=== PATIENT | male | born 1990 | race African-American/Black ===

== ENCOUNTER 2021-01-22 09:35 | Emergency (ER) | payer OTHER, SELFPAY ==
--- NOTE | ~2021-01-22 | XR_ITS ---
EXAMINATION: XR chest 2V EXAM DATE: 01/22/2021 11:23 INDICATION: Sometimes non prod cough chest painx 10 days non smoker. TECHNIQUE: Frontal and lateral projections of the chest obtained and reviewed. There is no prior sarika dy for comparison. FINDINGS: The lungs are clear. There are no pleural effusions. The cardiomediastinal silhouette is within normal limits. There is no pneumothorax suspected. The bones and soft tissues are unremarkab le. IMPRESSION: No acute cardiopulmonary findings. Reviewed, dictated and finalized at location B.
[2021-01-22 09:55] VITALS: BP 128/88; PULSE 72; RESP 16; TEMP 36.4; O2SAT 99
--- NOTE | 2021-01-22 10:39 | ED.GENADULT ---
HPI - General Adult General Chief complaint: Unspecified Stated complaint: Pressure in chest Time Seen by Provider: 01/22/21 10:15 Source: patient, RN notes reviewed and old records reviewed Mode of arrival: ambulatory Limitations: no limitations History of Present Illness HPI narrative: 30-year-old male who presents to [facility] with complaints of 10 day history of chest pressure and non productive cough. Patient also states that pressure feeling is intermittent and that it is resolved some when he takes a deep breath and burps, Patient denies any shortness of breath, denies any radiation of pain to back, jaw, or to his arms, denies any episodes of nausea or any episodes of diaphoresis. Patient admits to some alcohol use, denies any tobacco use, states does like spicy foods, denies any nausea or vomiting.Patient denies any fevers, chills or sweats, denies any shortness of breath or any body aches, has not had COVID vaccine. Patient states that he does lift frequently at work at most is 50 lb packages, works for [employer]. MD complaint: chest pressure with cough Onset (ago): day(s) (10) Treatments prior to arrival: none Related Data Allergies Allergy/AdvReac Type Severity Reaction Status Date / Time No Known Allergies Allergy Unverified 03/28/16 16:15 Review of Systems Review of Systems: CONSTITUTIONAL: Denies fever, chills, or sweats. EYES: Denies visual changes, redness, or discharge. ENT: Denies rhinorrhea, congestion, sore throat, or otalgia. CARDIOVASCULAR: Denies chest pain reports pressure intermittent,no palpitations, or edema. RESPIRATORY: positive dry cough denies dyspnea. GASTROINTESTINAL: Denies abdominal pain, nausea, vomiting, or diarrhea. GENITOURINARY: Denies dysuria or hematuria. SKIN: Denies rash or itching. MUSCULOSKELETAL: Denies back pain, joint pain, or myalgia. NEUROLOGIC: Denies headache, numbness, or weakness. PSYCHIATRIC: Denies anxiety or depression. All systems reviewed & are unremarkable except as noted in HPI and below PMFSH Past Medical History Medical History (Updated 01/24/21 @ 15:10 by Rosemarie Rosa NP) No active medical problems Surgical History Surgical History (Updated 01/24/21 @ 15:11 by Rosemarie Rosa NP) No history of previous surgery Social History Social History (Updated 01/24/21 @ 15:09 by Rosemarie Rosa NP) Smoking status: Never smoker Alcohol intake: current Substance use: unknown Living arrangements: with family Gender identity (if verbalized by the patient): Male Comments At time of signature, agree with nursing past medical, surgical, social and family history. There is no relevant family history pertinent to the presenting complaint Exam Narrative: GENERAL: Well-appearing, well-nourished, and in no acute distress. HEAD: Normocephalic, atraumatic. EYES: PERRLA and EOMI. ENT: Nares clear, no rhinorrhea or epistaxis. Mucous membranes moist.TM's normal with good light reflex, throat pink with no lesions or exudates or any tonsil enlargement. NECK: Supple.no lymphadenopathy CHEST: Clear to auscultation. No respiratory distress. respirations even and nonlabored, no tachypnea or any accessory muscle use noted,SAO2 99% on room air. HEART: Regular rate and rhythm. No murmur heard. Normal peripheral pulses. ABDOMEN: Soft, nontender, nondistended, normal active bowel sounds. EXTREMITIES: Normal range of motion. No edema. SKIN: Warm, dry, no rash. NEURO: No focal deficits. Alert and oriented x3. Course Vital Signs Vital signs: Vital Signs Temperature 36.4 C 01/22/21 09:55 Pulse Rate 72 01/22/21 09:55 Respiratory Rate 16 01/22/21 09:55 Blood Pressure 128/88 01/22/21 09:55 Pulse Oximetry 99 01/22/21 09:55 Temperature 36.4 C 01/22/21 09:55 Pulse Rate 72 01/22/21 09:55 Respiratory Rate 16 01/22/21 09:55 Blood Pressure 128/88 01/22/21 09:55 Pulse Oximetry 99 01/22/21 09:55 Medical Decision Making Differential
== END 2021-01-22 11:50 | disposition home or self-care (01) ==
PROVIDERS: Emergency Provider Registered Nurse
DX: K21.9 Gastro-esophageal reflux disease without esophagitis (principal)
CPT/HCPCS: 71046; 99213; G0463